=== PATIENT | male | born 1960 | race Caucasian/White ===

== ENCOUNTER → 2024-12-23 12:55 | Outpatient (REF) | payer BC, SELFPAY | LOC: HWRCS 12:55 | PROVIDERS: ATTENDING PHYSICIAN Internal Medicine Cardiovascular Disease; FAMILY PHYSICIAN Internal Medicine | DX: R00.2 Palpitations (principal) | CPT/HCPCS: 93306 ==

== ENCOUNTER → 2024-12-26 13:41 | Outpatient (REF) | payer SELFPAY | LOC: HWRAD 13:41 | PROVIDERS: ATTENDING PHYSICIAN Internal Medicine | DX: E78.2 Mixed hyperlipidemia (principal) | CPT/HCPCS: 75571 ==

== ENCOUNTER 2025-07-27 10:33 | Emergency (ER) | payer BC, SELFPAY ==
[2025-07-27 10:38] VITALS: BP 130/80
--- NOTE | 2025-07-27 11:27 | ED.GENMED ---
History of Present Illness
General
Chief Complaint: Cardiac Symptoms
Source: patient
Time Seen by Provider: 07/27/25 11:13
History of Present Illness
History of Present Illness:
65-year-old male with past medical history of GERD presenting to the emergency department stating he felt like he went into A-fib about 45 minutes prior to arrival, now feels asymptomatic. Patient states that this is something that has been
occurring off and on for the last few years, has undergone workup with cardiology has never been found to go into A-fib other than on a home monitor but not a Holter monitor that patient wore for 2 weeks. Patient is not on any anticoagulant
medicine or rate control medication. He does note frustration with the continuous palpitations as he states no exact etiology is found for the symptoms. He denies any chest pain, shortness of breath, diaphoresis, exertion dyspnea, orthopnea,
cough, fevers. patient states the last couple of days he feels like he may have mild viral URI-like symptoms with some mild sinus congestion.
Past History
Past History
ED Past Medical History: GERD
ED Past Surgical History: Orthopedic
Social History
Tobacco: Non-smoker
Alcohol: None
Drug: None
Personal:
Living: with family
Employment: Employed
Family History
Family History: CAD; Negative Early CAD
Review of Systems
Review of Systems
All Other Systems: ROS reviewed and negative except as documented in HPI and ROS
Phy Exam
Physical Exam
Physical Exam:
GENERAL: Alert , in no apparent distress
HEAD: Normocephalic atraumatic
EYE: conjunctiva clear
NECK: Supple
ENT: o/p clr, mmm.
CARDIAC: Regular rate and rhythm
LUNGS: Clear breath sounds bilaterally, no acute respiratory distress, no wheezes/rales/rhonchi
NEUROLOGICAL: Alert and oriented
SKIN: Warm and dry, skin intact.
MUSCULOSKELETAL: well perfused.
PSYCH: Normal and appropriate interaction.
Course
Orders/Labs/Results
Orders:
Orders
07/27/25 10:40
Electrocardiogram (*1) Urgent
Reason for Study: Atrial Fibrillation
EKG- Treatment ONCE
Vital Signs
Initial and Last Documented VS:
Initial Vital Signs
Temp Pulse Resp BP Pulse Ox
97.7 F 65 16 130/80 98
07/27/25 10:38 07/27/25 10:38 07/27/25 10:38 07/27/25 10:38 07/27/25 10:38
Last Documented Vital Signs
Temp Pulse Resp BP Pulse Ox
97.7 F 65 16 130/80 98
07/27/25 10:38 07/27/25 10:38 07/27/25 10:38 07/27/25 10:38 07/27/25 11:27
MDM/Problems Addressed
Differential Diagnosis Includes:
Atrial fibrillation
PACs/PVCs
Other cardiac arrhythmia/dysrhythmia
Valvular dysfunction
Thyroid disorder
Anemia
Electrolyte imbalance
Viral syndrome
MDM/Problems Addressed:
65-year-old male presenting to the emergency department for evaluation of palpitations that developed approximately 45 minutes prior to arrival, fully resolved by time of my exam. Patient is without fevers, chest pain or any other symptoms
presently and reports he feels he is in his usual state of health now. I did offer to check lab work but patient states he has had this done before and is currently declining. I encouraged patient to contact his cardiology office to continue
workup as an outpatient. Aware of return precautions to the ER. Stable for discharge home.
*Pulse Oximetry
SaO2: 98
Oxygen Mode of Delivery: Room air
Patient hypoxic: no
*EKG
Heart Rate: 79
Rate: normal
Rhythm: sinus
[place]: left axis deviation
Ischemia: no ischemia
*Mediator Interpretation
Rate: normal
Heart Rate: 68
Rhythm: sinus
*Critical Care Note
Total Time (30-74mins, 75-104mins- exclusive of procedures): Not Applicable
Data Reviewed
Review of Other/Old Records Reveals: Labs, Records and Testing
Patient Management
Social determinants of health affecting care: Living situation and Strong social support
ED Attending Note
-
Portions of this chart may have been created with voice recognition software.� Occasional wrong word or��sound alike� substitutions may have occurred due to the inherent limitations of voice recognition software.
Discharge Plan
Departure
Patient Disposition: Home (Routine Discharge)
Date of Disposition: 07/27/25
Time of Disposition: 11:27
Patient with high blood pressure during this ER visit?: No
Discharge Problem:
Palpitations
Instructions: Palpitations - ED (DC)
Interventions
Interventions:
*Risk Screen - Suicide Last Done: 07/27/25 10:38
*General Assessment Last Done: 07/27/25 11:23
*Neglect/Abuse Screening Last Done: 07/27/25 10:38
*ED- Fall Risk Assessment Last Done: 07/27/25 11:23
*Nursing Disposition Last Done: 07/27/25 11:50
ED- Pulmonary Assessment Last Done: 07/27/25 11:50
ED- Cardiac Assessment Last Done: 07/27/25 11:23
Discharge Date and Time
Print Language: [email or web address]
== END 2025-07-27 11:50 | disposition home or self-care (01) ==
LOC: EMR 10:33
PROVIDERS: EMERGENCY PHYSICIAN Emergency Medicine; FAMILY PHYSICIAN Internal Medicine
DX: R00.2 Palpitations (principal)
CPT/HCPCS: 99283; 93005